=== PATIENT | male | born 1995 | race African-American/Black ===

== ENCOUNTER 2018-11-18 09:05 | Emergency (ER) | payer OTHER ==
[2018-11-18 09:18] VITALS: BP 116/73
--- NOTE | 2018-11-18 09:44 | UC ---
Back Pain HPI - HPI Summary HPI Summary: 23 year old male with no PMH presents with lowe back pain, neck pain. Patient has been having back pain for several years, worse past 3 weeks. Has done PT in 2015 without much relief. no formal work up. Denies eye pain, swelling, skin conditions, bowel complaints. Patient states intermittently will have pain in ankles/ knees, intermittently, no specific joint, and fingers as well. no trauma, injuries. Works as hvac residential service technician. Pain worse at night with lying down, better with standing/ walking for short periods no numbness, tingling, loss of bowel/ bladder function. muscle spasms, but typically pain/ 6/10, more achy in back, joints good strength mil improvement with tylenol/ motrin - History of Current Complaint Chief Complaint: UCBackPain Stated Complaint: BACK PAIN Time Seen by Provider: 11/18/18 09:11 Hx Obtained From: Patient Onset/Duration: Gradual Onset, Lasting Weeks, Still Present, Worse Since - past 3 weeks Timing: Constant Severity Initially: Moderate Severity Currently: Moderate Pain Intensity: 5 Pain Scale Used: 0-10 Numeric Back Pain: Is Discrete @ - lower back, neck currently. Character: Dull, Aching, Stiffness - Allergies/Home Medications Allergies/Adverse Reactions: Allergies Allergy/AdvReac Type Severity Reaction Status Date / Time No Known Allergies Allergy Verified 11/18/18 09:18 Home Medications: Home Medications Acetaminophen [Tylenol] 2 tab PO ONCE PRN 11/18/18 [History Confirmed 11/18/18] PMH/Surg Hx/FS Hx/Imm Hx Previously Healthy: Yes - Surgical History Surgical History: None - Family History Known Family History: Positive: Non-Contributory - Social History Alcohol Use: Rare Substance Use Type: Marijuana Smoking Status (MU): Never Smoked Tobacco Review of Systems All Other Systems Reviewed And Are Negative: Yes Musculoskeletal: Positive: Arthralgia, Myalgia Is Patient Immunocompromised?: No Physical Exam Triage Information Reviewed: Yes Appearance: Well-Appearing, No Pain Distress, Well-Nourished Vital Signs: Initial Vital Signs Temp 98.5 F 11/18/18 09:14 Pulse 63 11/18/18 09:14 Resp 14 11/18/18 09:14 BP 116/73 11/18/18 09:14 Pulse Ox 99 11/18/18 09:14 Vital Signs Reviewed: Yes Eyes: Positive: Conjunctiva Clear Musculoskeletal: Positive: Strength Intact - b/l LEs, UEs, spine, ROM Intact - b /l LEs, UEs, spine, No Edema - no swelling of fingers, knee joints Neurological Exam: Normal Neurological: Positive: Other: - patella, ankle reflexes 2+ b/l Psychological Exam: Normal Skin Exam: Normal Back Pain Course/Dx - Course Course Of Treatment: radiograph: negative. Blood work drawn to r/o inflammatory cause lumbago: - Gentle stretching exercised twice daily as tolerated - Core strengthening exercises - Naproxen 250mg twice daily x 7 days - Flexeril as needed for muscle spasms, sleep - Follow up with [facility] for blood work results, repeat eval in 1 week - Go to ER with numbness, weakness, increased pain, fever, chills. - Differential Dx/Diagnosis Differential Diagnosis/HQI/PQRI: Strain, Sprain Provider Diagnosis: Lumbago Discharge - Sign-Out/Discharge Documenting (check all that apply): Patient Departure All imaging exams completed and their final reports reviewed: Yes - Discharge Plan Condition: Good Disposition: HOME Prescriptions: Cyclobenzaprine TAB* [Flexeril 10 MG TAB*] 10 mg PO BEDTIME PRN #3 tab PRN Reason: muscle spasm Naproxen [Naproxen 250 mg tab] 250 mg PO BID #60 tablet Patient Education Materials: Chronic Back Pain (DC), Lower Back Exercises (ED) , Core Strengthening Exercises (ED) Forms: *Work Release Referrals: No Primary Care Phys,NOPCP [Primary Care Provider] - [facility] [Outside] Additional Instructions: - Gentle stretching exercised twice daily as tolerated - Core strengthening exercises - Naproxen 250mg twice daily x 7 days - Flexeril as needed for muscle spasms, sleep - Follow up with [facility] for blood work results, repeat eval in 1 week - Go to ER with numbness, weakness, increased pain, fever, chills. - Billing Disposition and Condition Condition: GOOD Disposition: Home - Attestation Statements Provider Attestation: Per institutional requirements, I have reviewed the chart, however, I was not consulted specifically or made aware of this patient by the midlevel provider. I did not personally evaluate, interact with , or disposition this patient.
[2018-11-18 17:24] LABS: ALT 26 U/L (7-52); AST 21 U/L (13-39); Albumin 4.5 g/dL (3.2-5.2); Albumin/Globulin Ratio 1.9 (1-3); Alkaline Phosphatase 82 U/L (34-104); Anion Gap 7 mmol/L (2-11); BUN/Creatinine Ratio 9.9 (8-20); Blood Urea Nitrogen 9 mg/dL (6-24); C Reactive Protein < 1.00 mg/L (<8.01); CO2 Carbon Dioxide 27 mmol/L (22-32); Calcium 9.5 mg/dL (8.6-10.3); Chloride 105 mmol/L (101-111); EGFR African American 124.9 (>60); EGFR Non-African American 103.2 (>60); Globulin 2.4 g/dL (2-4); Glucose 87 mg/dL (70-100); Potassium 4.8 mmol/L (3.5-5.0); Sodium 139 mmol/L (135-145); Total Protein 6.9 g/dL (6.4-8.9)
--- NOTE | 2018-11-19 08:13 | UC ---
- Progress Note Progress Note: cmp, sed rate, crp wnl no change ljj 11/19/18 Course/Dx - Diagnoses Provider Diagnoses: Lumbago Discharge - Sign-Out/Discharge Documenting (check all that apply): Post-Discharge Follow Up All imaging exams completed and their final reports reviewed: Yes - Discharge Plan Condition: Good Disposition: HOME Prescriptions: Cyclobenzaprine TAB* [Flexeril 10 MG TAB*] 10 mg PO BEDTIME PRN #3 tab PRN Reason: muscle spasm Naproxen [Naproxen 250 mg tab] 250 mg PO BID #60 tablet Patient Education Materials: Chronic Back Pain (DC), Lower Back Exercises (ED) , Core Strengthening Exercises (ED) Forms: *Work Release Referrals: [facility] [Outside] No Primary Care Phys,NOPCP [Primary Care Provider] - Additional Instructions: - Gentle stretching exercised twice daily as tolerated - Core strengthening exercises - Naproxen 250mg twice daily x 7 days - Flexeril as needed for muscle spasms, sleep - Follow up with [facility] for blood work results, repeat eval in 1 week - Go to ER with numbness, weakness, increased pain, fever, chills. - Billing Disposition and Condition Condition: GOOD Disposition: Home
== END 2018-11-18 10:38 | disposition home or self-care (01) ==
LOC: UCEAST 09:05
DX: M54.5 Low back pain (principal); M54.2 Cervicalgia
CPT/HCPCS: 36415; 72110; 80053; 85652; 86038; 86140; 99202; G0463

== ENCOUNTER 2019-04-29 07:40 | Emergency (ER) | payer OTHER ==
[2019-04-29 07:53] VITALS: BP 119/72
--- NOTE | 2019-04-29 08:12 | UC ---
Respiratory Complaint HPI - HPI Summary HPI Summary: PATIENT HAD FLULIKE SYMPTOMS LAST WEEK WHICH SHE STATES HAVE MOSTLY RESOLVED. LAST NIGHT HE STOOD UP FROM THE COUCH AND HAD SUDDEN ONSET OF SHARP MIDSTERNAL CHEST PAIN. AFTER A COUPLE OF HOURS HE STATES IT MOVED TO HIS BACK. FEELS LIKE HE PULLED A MUSCLE. WORSE WITH MOVEMENT. ONLY MINIMALLY WORSE WITH DEEP BREATHING. HAS BEEN PRESENT ALL NIGHT. - History of Current Complaint Chief Complaint: UCRespiratory Stated Complaint: CHEST/BACK PAIN Time Seen by Provider: 04/29/19 08:03 Hx Obtained From: Patient Onset/Duration: Sudden Onset, Lasting Hours, Still Present Timing: Constant Severity Initially: Moderate Severity Currently: Moderate Pain Intensity: 8 Pain Scale Used: 0-10 Numeric Character: Cough: Nonproductive Aggravating Factors: Deep Breaths - MOVEMENT Alleviating Factors: Nothing Associated Signs And Symptoms: Positive: URI. Negative: Dyspnea, Fever, Wheezing - Allergies/Home Medications Allergies/Adverse Reactions: Allergies Allergy/AdvReac Type Severity Reaction Status Date / Time No Known Allergies Allergy Verified 04/29/19 07:53 Home Medications: Home Medications Ibuprofen TAB* [Advil TAB*] 200 mg PO Q6H PRN 04/29/19 [History Confirmed ] PMH/Surg Hx/FS Hx/Imm Hx Previously Healthy: Yes - Surgical History Surgical History: None - Family History Known Family History: Positive: Non-Contributory - Social History Alcohol Use: Occasionally Substance Use Type: None Smoking Status (MU): Current Some Day Smoker Type: Cigarettes Review of Systems All Other Systems Reviewed And Are Negative: Yes Constitutional: Positive: Negative Respiratory: Positive: Negative Cardiovascular: Positive: Chest Pain Gastrointestinal: Positive: Negative Musculoskeletal: Positive: Myalgia Physical Exam Triage Information Reviewed: Yes Appearance: Well-Appearing, No Pain Distress, Well-Nourished Vital Signs: Initial Vital Signs Temp 98.5 F 04/29/19 07:44 Pulse 80 04/29/19 07:44 Resp 16 04/29/19 07:44 BP 119/72 04/29/19 07:44 Pulse Ox 97 04/29/19 07:44 Vital Signs Reviewed: Yes Eyes: Positive: Conjunctiva Clear ENT: Positive: Hearing grossly normal Neck: Positive: Supple Respiratory Exam: Normal Cardiovascular Exam: Normal Abdomen Description: Positive: Nontender, Soft Musculoskeletal: Positive: No Edema Neurological: Positive: Alert Psychological: Positive: Age Appropriate Behavior Skin: Negative: Rashes Diagnostics - Radiology CXR Radiology Interpretation Completed By: Radiologist Summary of Radiographic Findings: No acute cardiopulmonary process by radiograph Respiratory Course/Dx - Course Course Of Treatment: CXR UNREMARKABLE. SUSPECT MUSCLE STRAIN. PATIENT HAS BEEN COUGHING A LOT OVER THE PAST COUPLE OF WEEKS HE HAS BEEN RECOVERING FROM A FLULIKE ILLNESS. HAVE ADVISED OTC ANTI-INFLAMMATORIES AND WILL TRY MUSCLE RELAXER. FOLLOW-UP IF SYMPTOMS NOT IMPROVING. - Differential Dx/Diagnosis Provider Diagnosis: Muscle strain Discharge ED - Sign-Out/Discharge Documenting (check all that apply): Patient Departure All imaging exams completed and their final reports reviewed: Yes - Discharge Plan Condition: Stable Disposition: HOME Prescriptions: Cyclobenzaprine TAB* [Flexeril TAB*] 10 mg PO BID PRN #15 tab PRN Reason: Pain Patient Education Materials: Muscle Strain (ED) Forms: *Work Release Referrals: [facility] [Outside] - If Needed Additional Instructions: CHEST X-RAY TODAY UNREMARKABLE. CLINICALLY YOUR PRESENTATION IS CONSISTENT WITH A MUSCLE STRAIN. I RECOMMEND YOU TAKE 600 MG OF IBUPROFEN EVERY 6 HOURS NEEDED. MUSCLE RELAXER NEEDED. REST, STRETCH, HEAT. GO TO THE ER WITHOUT FAIL IF YOU DEVELOP WORSENING PAIN, SHORTNESS OF BREATH, NAUSEA, DIZZINESS, FEVER OR ANY OTHER CONCERNING SYMPTOMS. - Billing Disposition and Condition Condition: STABLE Disposition: Home
== END 2019-04-29 08:55 | disposition home or self-care (01) ==
LOC: UCEAST 07:40
DX: S29.011A Strain of muscle and tendon of front wall of thorax, initial encounter (principal); F17.210 Nicotine dependence, cigarettes, uncomplicated; X58.XXXA Exposure to other specified factors, initial encounter; Y92.9 Unspecified place or not applicable
CPT/HCPCS: 71046; 99212; G0463